=== PATIENT | male | born 1985 | race Caucasian/White ===

== ENCOUNTER 2019-09-24 14:20 | Emergency (ER) | payer BC ==
[2019-09-24] MEDS ORDERED: Sodium Chloride 0.9% 1,000 ML IV ONE (15:16)
--- NOTE | 2019-09-24 15:23 | EDM.PDOC ---
ED HPI GENERAL MEDICAL PROBLEM - General Chief Complaint: Abdominal Pain Stated Complaint: STOMACH PAIN Time Seen by Provider: 09/24/19 15:00 Source of Information: Reports: Patient History Limitations: Reports: No Limitations - History of Present Illness INITIAL COMMENTS - FREE TEXT/NARRATIVE: This 34 year old male with a history of a ventral hernia presents to the ED with a sudden onset of mid abdominal pain in his hernia area for the past 2 hours. He states that he was to have the hernia looked at by a surgeon. He denies any nausea or vomiting or other GI complaints. He denies any urinary complaints. He denies any chest pain, SOB or difficulty breathing. He denies any other symptoms at this time. He states that he last ate around 6:00AM. Onset: Sudden (2 hours prior to admission to ED) Duration: Constant Quality: Reports: Dull, Sharp Severity: Moderate Improves with: Reports: Medication (Motrin) abd Pain Score (Numeric/FACES): 8 - Related Data Allergies Allergy/AdvReac Type Severity Reaction Status Date / Time No Known Allergies Allergy Verified 09/24/19 14:35 Home Meds: Home Meds . [No Known Home Meds] 09/24/19 [History] Past Medical History - Past Surgical History GI Surgical History: Reports: Hernia, Abdominal Social & Family History - Family History Family Medical History: Noncontributory - Tobacco Use Smoking Status *Q: Current Every Day Smoker Years of Tobacco use: 10 Packs/Tins Daily: 1 - Recreational Drug Use Recreational Drug Use: No ED ROS GENERAL - Review of Systems Review Of Systems: See Below Constitutional: Reports: No Symptoms HEENT: Reports: No Symptoms Respiratory: Reports: No Symptoms Cardiovascular: Reports: No Symptoms Endocrine: Reports: No Symptoms GI/Abdominal: Reports: Abdominal Pain (mid abdomen near ventral hernia site), Anorexia. Denies: Constipation, Diarrhea, Nausea, Vomiting : Reports: No Symptoms Musculoskeletal: Reports: No Symptoms Skin: Reports: No Symptoms Neurological: Reports: No Symptoms Psychiatric: Reports: No Symptoms ED EXAM, GI/ABD - Physical Exam Exam: See Below Exam Limited By: No Limitations General Appearance: Alert, WD/WN, Moderate Distress (complaining of abdominal pain in the mid abdomen) Ears: Normal External Exam, Normal Canal, Hearing Grossly Normal, Normal TMs Nose: Normal Inspection, Normal Mucosa, No Blood Throat/Mouth: Normal Inspection, Normal Lips, Normal Teeth, Normal Gums, Normal Oropharynx, Normal Voice, No Airway Compromise Head: Atraumatic, Normocephalic Neck: Normal Inspection, Supple, Non-Tender, Full Range of Motion Respiratory/Chest: No Respiratory Distress, Lungs Clear, Normal Breath Sounds, No Accessory Muscle Use, Chest Non-Tender Cardiovascular: Normal Peripheral Pulses, Regular Rate, Rhythm, No Edema, No Gallop, No JVD, No Murmur, No Rub GI/Abdominal Exam: Normal Bowel Sounds, Soft, No Distention, No Abnormal Bruit, Guarding (near hernia site), Hernia (as noted below), Other (tenderness is noted over the ventral hernia. Unable to reduce the hernia which also increased the pain.) (Male) Exam: Deferred Rectal (Males) Exam: Deferred Back Exam: Normal Inspection Extremities: Normal Inspection, Normal Range of Motion, Normal Capillary Refill Neurological: Alert, Oriented, CN II-XII Intact, Normal Reflexes Psychiatric: Normal Affect, Normal Mood Skin Exam: Warm, Dry, Intact, Normal Color, No Rash Lymphatic: No Adenopathy Course - Vital Signs Text/Narrative:: The patient has an incarcerated ventral hernia. Dr. Inman the General surgeon is in the department examining the patient at 5:20PM. He will see if he can reduce the hernia. At 5:25PM Dr. Inman was able to reduce the hernia. He will be discharged. Last Recorded V/S: Last Vital Signs Temp 96.1 F L 09/24/19 14:36 Pulse 80 09/24/19 17:06 Resp 14 09/24/19 17:06 BP 128/84 09/24/19 17:06 Pulse Ox 99 09/24/19 17:06 - Orders/Labs/Meds Orders: Active Orders 24 hr Category Date Time Status Notify Provider Consults [RC] ASDIRECTED Care 09/24/19 17:38 Active Consult to Physician [CONS] Stat Cons 09/24/19 17:38 Active NPO Now [Nothing per Oral Now Diet] [DIET] Diet 09/24/19 Dinner Active Abdominal Binder [OM.PC] Stat Oth 09/24/19 17:26 Ordered Labs: Laboratory Tests 09/24/19 09/24/19 09/24/19 Range/Units 15:27 15:27 16:40 WBC 8.10 (4.0-11.0) K/uL RBC 4.95 (4.50-5.90) M/uL Hgb 15.5 (13.0-17.0) g/dL Hct 45.6 (38.0-50.0) % MCV 92.1 (80.0-98.0) fL MCH 31.3 (27.0-32.0) pg MCHC 34.0 (31.0-37.0) g/dL RDW Std Deviation 42.6 (28.0-62.0) fl RDW Coeff of Valentín 13 (11.0-15.0) % Plt Count 234 (150-400) K/uL MPV 10.60 (7.40-12.00) fL Neut % (Auto) 71.5 (48.0-80.0) % Lymph % (Auto) 16.5 (16.0-40.0) % [place] % (Auto) 6.9 (0.0-15.0) % Eos % (Auto) 4.7 (0.0-7.0) % Baso % (Auto) 0.4 (0.0-1.5) % Neut # (Auto) 5.8 H (1.4-5.7) K/uL Lymph # (Auto) 1.3 (0.6-2.4) K/uL [place] # (Auto) 0.6 (0.0-0.8) K/uL Eos # (Auto) 0.4 (0.0-0.7) K/uL Baso # (Auto) 0.0 (0.0-0.1) K/uL Nucleated RBC % 0.0 /100WBC Nucleated RBCs # 0 K/uL Sodium 138 (136-148) mmol/L Potassium 4.5 (3.5-5.1) mmol/L Chloride 101 (98-107) mmol/L Carbon Dioxide 28.4 (21.0-32.0) mmol/L BUN 15 (7.0-18.0) mg/dL Creatinine 1.3 (0.8-1.3) mg/dL Est Cr Clr Drug Dosing 81.11 mL/min Estimated GFR (MDRD) > 60.0 ml/min Glucose 93 (74-106) mg/dL Calcium 9.2 (8.5-10.1) mg/dL Total Bilirubin 0.5 (0.2-1.0) mg/dL AST 19 (15-37) IU/L ALT 28 (14-63) IU/L Alkaline Phosphatase 71 (46-116) U/L Total Protein 7.8 (6.4-8.2) g/dL Albumin 4.4 (3.4-5.0) g/dL Globulin 3.4 (2.6-4.0) g/dL Albumin/Globulin Ratio 1.3 (0.9-1.6) Lipase 89 (73-393) U/L Urine Color YELLOW Urine Appearance CLEAR Urine pH 5.5 (5.0-8.0) Ur Specific [place] 1.015 (1.001-1.035) Urine Protein NEGATIVE (NEGATIVE) mg/dL Urine Glucose (UA) NEGATIVE (NEGATIVE) mg/dL Urine Ketones NEGATIVE (NEGATIVE) mg/dL Urine Occult Blood NEGATIVE (NEGATIVE) Urine Nitrite NEGATIVE (NEGATIVE) Urine Bilirubin NEGATIVE (NEGATIVE) Urine Urobilinogen 0.2 (<2.0) EU/dL Ur Leukocyte Esterase NEGATIVE (NEGATIVE) Meds: Medications Discontinued Medications Generic Name Dose Route Start Last Admin Trade Name Freq PRN Reason Stop Dose Admin Sodium Chloride 1,000 mls @ 1,000 mls/hr 09/24/19 15:16 09/24/19 15:25 Normal Saline IV 09/24/19 16:15 1,000 mls/hr .Bolus ONE Administration Iopamidol 100 ml 09/24/19 16:42 09/24/19 16:43 Isovue Multipack-370 (76%) IVPUSH 09/24/19 16:43 100 ml ONETIME STA Administration Ketorolac Tromethamine 30 mg 09/24/19 17:26 09/24/19 17:30 Toradol IVPUSH 09/24/19 17:27 30 mg ONETIME ONE Administration Departure - Departure Time of Disposition: 18:19 Disposition: Home, Self-Care 01 Condition: Good Clinical Impression: Ventral hernia, recurrent - Discharge Information *PRESCRIPTION DRUG MONITORING PROGRAM REVIEWED*: Yes *COPY OF PRESCRIPTION DRUG MONITORING REPORT IN PATIENT ANNE: Yes Instructions: Hernia, Adult, [id number] Referrals: PCP,None [Primary Care Provider] - Forms: ED Department Discharge Additional Instructions: Follow up with surgeon as you discussed with Dr. Inman. Drink plenty of clear liquids for the next 24 hours. Wear your hernia belt as directed by Dr. Inman Rest for the next 24 hours. Return to the ED if your condition gets worse or should you have any questions or concerns. The following information is given to patients seen in the emergency department who are being discharged to home. This information is to outline your options for follow-up care. We provide all patients seen in our emergency department with a follow-up referral. The need for follow-up, as well as the timing and circumstances, are variable depending upon the specifics of your emergency department visit. If you don't have a primary care physician on staff, we will provide you with a referral. We always advise you to contact your personal physician following an emergency department visit to inform them of the circumstance of the visit and for follow-up with them and/or the need for any referrals to a consulting specialist. The emergency department will also refer you to a specialist when appropriate. This referral assures that you have the opportunity for follow-up care with a specialist. All of these measure are taken in an effort to provide you with optimal care, which includes your follow-up. Under all circumstances we always encourage you to contact your private physician who remains a resource for coordinating your care. When calling for follow-up care, please make the office aware that this follow-up is from your recent emergency room visit. If for any reason you are refused follow-up, please contact the [facility] Emergency Department at and asked to speak to the emergency department charge nurse. Sepsis Event Note - Evaluation Sepsis Screening Result: No Definite Risk - Focused Exam Vital Signs: Vital Signs Temp Pulse Resp BP Pulse Ox 09/24/19 17:06 80 14 128/84 99 09/24/19 14:36 96.1 F L 76 15 146/97 H 100 Date Exam was Performed: 09/24/19 Time Exam was Performed: 18:24 - My Orders Last 24 Hours: My Active Orders 09/24/19 17:38 Notify Provider Consults [RC] ASDIRECTED Consult to Physician [CONS] Stat 09/24/19 Dinner NPO Now [Nothing per Oral Now Diet] [DIET] - Assessment/Plan Last 24 Hours: My Active Orders 09/24/19 17:38 Notify Provider Consults [RC] ASDIRECTED Consult to Physician [CONS] Stat 09/24/19 Dinner NPO Now [Nothing per Oral Now Diet] [DIET]
[2019-09-24 16:12] LABS: BLOOD UREA NITROGEN,BUN 15 mg/dL (7.0-18.0); CARBON DIOXIDE,CO2 28.4 mmol/L (21.0-32.0); CHLORIDE,CL 101 mmol/L (98-107); GLUCOSE RANDOM 93 mg/dL (74-106); LIPASE 89 U/L (73-393); POTASSIUM,K 4.5 mmol/L (3.5-5.1); SODIUM,NA 138 mmol/L (136-148)
[2019-09-24] MEDS ORDERED: Iopamidol 755 MG/ML 500 ML Multipack Bottle IVPUSH STA ×2 (16:42→16:53)
--- NOTE | 2019-09-24 17:07 | CT ---
CT abdomen and pelvis Technique: Multiple axial sections were obtained from above the dome of the diaphragm inferiorly through the pubic symphysis. Intravenous contrast was utilized. No oral contrast has been given. Comparison: No prior abdominal imaging is available. Findings: Visualized lung bases show nothing acute. Liver contains no focal parenchymal abnormality. Spleen appears within normal limits. Adrenal glands show no nodule. Pancreas is within normal limits. Gallbladder contains no calcified gallstones. Aorta shows no aneurysm. No retroperitoneal adenopathy is seen. Kidneys show symmetric contrast enhancement without hydronephrosis or mass. No pelvic mass or adenopathy is seen. No free fluid or inflammatory change is seen. Small fat-containing inguinal hernias are noted on both sides. Anterior abdominal wall hernia is seen superior to the umbilicus which contains a loop of small bowel. Proximal small bowel is slightly dilated as compared to the more distal small bowel suggesting a mild amount of incarceration. Appendix is seen and is normal in size. Bone window settings were reviewed which shows mild scattered degenerative change within the spine. Impression: 1. Anterior abdominal wall hernia above the umbilicus. Small bowel loop extends into this hernia. As mentioned above, proximal small bowel is slightly dilated as compared to the distal small bowel compatible with mild amount of incarceration. 2. Other findings believed to be incidental. Diagnostic code #5 Study was dictated in MDT
[2019-09-24] MEDS ORDERED: Ketorolac 30 MG/ML SDV IVPUSH ONE (17:26)
--- NOTE | 2019-09-24 17:58 | PCM.CONS ---
H&P History of Present Illness - General Date of Service: 09/24/19 Admit Problem/Dx: Abdominal pain. Incarcerated ventral henia. Source of Information: Patient History Limitations: Reports: No Limitations - History of Present Illness Initial Comments - Free Text/Narative: Patient is a 34-year-old gentleman who presents to the emergency room today with abdominal pain and a mass just above his umbilicus that is quite tender. He denies any nausea, vomiting, fever or chills. He doesn't recall passing any gas or having a bowel movement today. He states he has known he had a hernia for about 5 years. He is scheduled to have this repaired in 2 weeks at home in [place]. Onset of Symptoms: Reports: Today Duration of Symptoms: Reports: Hour(s): Location: Reports: Abdomen Quality: Reports: Pressure, Sharp, Throbbing Severity: Moderate Improves with: Reports: Rest Worsens with: Reports: Movement Associated Symptoms: Denies: Fever/Chills, Loss of Appetite, Malaise, Nausea/ Vomiting abd Pain Score (Numeric/FACES): 8 - Related Data Allergies/Adverse Reactions: Allergies Allergy/AdvReac Type Severity Reaction Status Date / Time No Known Allergies Allergy Verified 09/24/19 14:35 Home Medications: Home Meds . [No Known Home Meds] 09/24/19 [History] Past Medical History - Past Surgical History HEENT Surgical History: Reports: Tonsillectomy GI Surgical History: Reports: Hernia, Abdominal Social & Family History - Family History Family Medical History: Noncontributory - Tobacco Use Smoking Status *Q: Current Every Day Smoker Years of Tobacco use: 10 Packs/Tins Daily: 1 - Recreational Drug Use Recreational Drug Use: No H&P Review of Systems - Review of Systems: Review Of Systems: See Below General: Denies: Fever, Chills, Malaise, Weakness, Fatigue HEENT: Reports: No Symptoms Pulmonary: Denies: Shortness of Breath, Wheezing Cardiovascular: Denies: Chest Pain Gastrointestinal: Reports: Abdominal Pain, Decreased Appetite. Denies: Anorexia , Black Stool, Bloody Stool, Constipation, Diarrhea, Distension, Flatus, Hematemesis, Hematochezia, Melena, Nausea, Vomiting Genitourinary: Denies: Dysuria, Frequency, Burning, Pain, Urgency Musculoskeletal: Denies: Neck Pain, Shoulder Pain Skin: Denies: Cyanosis, Jaundice, Mottled Psychiatric: Reports: No Symptoms Neurological: Reports: No Symptoms Hematologic/Lymphatic: Reports: No Symptoms Immunologic: Reports: No Symptoms Exam - Exam Exam: See Below - Vital Signs Vital Signs: Last Vital Signs Temp 96.1 F L 09/24/19 14:36 Pulse 80 09/24/19 17:06 Resp 14 09/24/19 17:06 BP 128/84 09/24/19 17:06 Pulse Ox 99 09/24/19 17:06 Weight: 240 lb - Exam General: Alert, Oriented, Cooperative, Moderate Distress HEENT: Conjunctiva Clear, EACs Clear, EOMI, Pupils Equal, Pupils Reactive. No: Scleral Icterus Neck: Supple, Trachea Midline Lungs: Clear to Auscultation, Normal Respiratory Effort Cardiovascular: Regular Rate, Regular Rhythm. No: Tachycardia GI/Abdominal Exam: Normal Bowel Sounds, Soft, No Distention, Tender, Hernia ( Ventral), Mass (Supraumbilical). No: Guarding, Rigid, Rebound (Male) Exam: Deferred Rectal (Males) Exam: Deferred Back Exam: Normal Inspection Extremities: Normal Inspection, Normal Range of Motion, Non-Tender Peripheral Pulses: 4+: Posterior Tibial (L), Posterior Tibial (R), Dorsalis Pedis (L), Dorsalis Pedis (R) Skin: Warm, Dry, Intact - Patient Data Lab Results Last 24 hrs: Laboratory Results - last 24 hr 09/24/19 09/24/19 09/24/19 Range/Units 15:27 15:27 16:40 WBC 8.10 (4.0-11.0) K/uL RBC 4.95 (4.50-5.90) M/uL Hgb 15.5 (13.0-17.0) g/dL Hct 45.6 (38.0-50.0) % MCV 92.1 (80.0-98.0) fL MCH 31.3 (27.0-32.0) pg MCHC 34.0 (31.0-37.0) g/dL RDW Std Deviation 42.6 (28.0-62.0) fl RDW Coeff of Valentín 13 (11.0-15.0) % Plt Count 234 (150-400) K/uL MPV 10.60 (7.40-12.00) fL Neut % (Auto) 71.5 (48.0-80.0) % Lymph % (Auto) 16.5 (16.0-40.0) % [place] % (Auto) 6.9 (0.0-15.0) % Eos % (Auto) 4.7 (0.0-7.0) % Baso % (Auto) 0.4 (0.0-1.5) % Neut # (Auto) 5.8 H (1.4-5.7) K/uL Lymph # (Auto) 1.3 (0.6-2.4) K/uL [place] # (Auto) 0.6 (0.0-0.8) K/uL Eos # (Auto) 0.4 (0.0-0.7) K/uL Baso # (Auto) 0.0 (0.0-0.1) K/uL Nucleated RBC % 0.0 /100WBC Nucleated RBCs # 0 K/uL Sodium 138 (136-148) mmol/L Potassium 4.5 (3.5-5.1) mmol/L Chloride 101 (98-107) mmol/L Carbon Dioxide 28.4 (21.0-32.0) mmol/L BUN 15 (7.0-18.0) mg/dL Creatinine 1.3 (0.8-1.3) mg/dL Est Cr Clr Drug Dosing 81.11 mL/min Estimated GFR (MDRD) > 60.0 ml/min Glucose 93 (74-106) mg/dL Calcium 9.2 (8.5-10.1) mg/dL Total Bilirubin 0.5 (0.2-1.0) mg/dL AST 19 (15-37) IU/L ALT 28 (14-63) IU/L Alkaline Phosphatase 71 (46-116) U/L Total Protein 7.8 (6.4-8.2) g/dL Albumin 4.4 (3.4-5.0) g/dL Globulin 3.4 (2.6-4.0) g/dL Albumin/Globulin Ratio 1.3 (0.9-1.6) Lipase 89 (73-393) U/L Urine Color YELLOW Urine Appearance CLEAR Urine pH 5.5 (5.0-8.0) Ur Specific [place] 1.015 (1.001-1.035) Urine Protein NEGATIVE (NEGATIVE) mg/dL Urine Glucose (UA) NEGATIVE (NEGATIVE) mg/dL Urine Ketones NEGATIVE (NEGATIVE) mg/dL Urine Occult Blood NEGATIVE (NEGATIVE) Urine Nitrite NEGATIVE (NEGATIVE) Urine Bilirubin NEGATIVE (NEGATIVE) Urine Urobilinogen 0.2 (<2.0) EU/dL Ur Leukocyte Esterase NEGATIVE (NEGATIVE) Result Diagrams: 09/24/19 15:27 09/24/19 15:27 Sepsis Event Note - Evaluation Sepsis Screening Result: No Definite Risk - Focused Exam Vital Signs: Vital Signs Temp Pulse Resp BP Pulse Ox 09/24/19 17:06 80 14 128/84 99 09/24/19 14:36 96.1 F L 76 15 146/97 H 100 Date Exam was Performed: 09/24/19 Time Exam was Performed: 17:52 Consult PN Assessment/Plan (1) Incarcerated ventral hernia SNOMED Code(s): 905846168 Code(s): K43.6 - OTHER AND UNSP VENTRAL HERNIA WITH OBSTRUCTION, W/O GANGRENE Priority: High Current Visit: Yes Problem List Initiated/Reviewed/Updated: Yes My Orders Last 24 Hours: My Active Orders 09/24/19 17:26 Abdominal Binder [OM.PC] Stat Plan: CT scan and report have personally been reviewed. Physical examination is consistent with an incarcerated ventral hernia. With moderate pressure for 2-3 minutes, I was able to reduce the hernia. Patient felt markedly improved and more comfortable within a minute or 2. The hernia has stayed reduced during my time examining and visiting with him. I did recommend that he use an abdominal binder and return promptly to [place] and see if he can get this repaired sooner to prevent another episode of incarceration and possible bowel obstruction.
== END 2019-09-24 18:36 | disposition home or self-care (01) ==
LOC: MW.ED 14:20
DX: K43.2 Incisional hernia without obstruction or gangrene (principal); F17.210 Nicotine dependence, cigarettes, uncomplicated
CPT/HCPCS: 36415; 74177; 80053; 81003; 83690; 85025; 96361; 96374; 99284; J1885; J7030; Q9967